=== PATIENT | female | born 1995 ===

== ENCOUNTER 2017-01-05 06:14 | Emergency (ER) | payer OTHER ==
[2017-01-05] MEDS ORDERED: diPHENhydraMINE IV* 50 MG/ML 1 ml VIAL (BENADRYL) IV ONE (06:22)
[2017-01-05] MEDS ORDERED: NS 0.9% 1000 ML* 2,000 ML IV ONE (06:22)
[2017-01-05] MEDS ORDERED: Metoclopramide IV* 5 MG/ML 2 ML VIAL IV ONE (06:22)
[2017-01-05] MEDS ORDERED: Ketorolac INJ* 30 MG/ML 1 ML VIAL IV PUSH ONE (06:47)
[2017-01-05] MEDS ORDERED: Ketorolac INJ* 30 MG/ML 1 ML VIAL ONE (06:48)
[2017-01-05 07:47] LABS: Hematocrit 37 % (35-47); Hemoglobin 11.9 g/dl (12.0-16.0); Mean Corpuscular HGB Conc 32 g/dl (31-36); Mean Corpuscular Hemoglobin 27 pg (27-31); Mean Corpuscular Volume 82 fL (80-97); Mean Platelet Volume 10 um3 (7.4-10.4); Red Blood Count 4.48 10^6/ul (4.0-5.4); Red Cell Distribution Width 15 % (10.5-15); White Blood Count 8.6 10^3/ul (3.5-10.8)
[2017-01-05 08:17] LABS: BUN/Creatinine Ratio 20.6 (8-20); EGFR Non-African American 118.2 (>60)
--- NOTE | 2017-01-05 08:51 | ED ---
Fco Phelan Anna, scribed for Rachel Abernathy MD on 01/05/17 at 0837 . Progress - Progress Note Progress Note: Patient signed out from Dr. Smart at shift change. Upon re-evaluation at 0836, patient reports she is feeling better and does not need medication for home. Patient will be discharged with follow up form Anthony. Course/Dx - Diagnoses Provider Diagnoses: Migraine The documentation as recorded by the Fco devi Anna accurately reflects the service I personally performed and the decisions made by Josemanuel goff Justine, MD.
[2017-01-05 09:02] VITALS: BP 106/71
--- NOTE | 2017-01-06 15:04 | ED ---
Ann Phelan Alok, scribed for Donte Smart MD on 01/05/17 at 0643 . Headache - HPI Summary HPI Summary: 21 y/o female presents to the ED with a FUNEZ since 1999. Pt states that her FUNEZ is diffuse throughout her head, waxing and waning in intensity. Her FUNEZ worsened this morning prompting her visit to the ED. Pt states FUNEZ is worsened when supine. Pt denies any photophobia, fever, diaphoresis, chills, or neck pain. Pt states her menstrual periods have been normal lately and has NKDA. - History Of Current Complaint Chief Complaint: EDHeadache Stated Complaint: HEADACHE/VOMITING Time Seen by Provider: 01/05/17 06:30 Hx Obtained From: Patient Onset/Duration: Gradual Onset, Started hours ago, Worse Since - Morning Initially Headache Was: Moderate Currently Pain Is: Moderate Timing: Constant Character: Migraine Location of Headache: Diffuse Aggravating Factor: Position Change - Supine Allevating Factors: Nothing - Allergies/Home Medications Allergies/Adverse Reactions: Allergies Allergy/AdvReac Type Severity Reaction Status Date / Time No Known Allergies Allergy Verified 02/06/15 07:07 PMH/Surg Hx/FS Hx/Imm Hx Infectious Disease History: No Infectious Disease History: Reports: Traveled Outside the [place] in Last 30 Days - [place] - Family History Known Family History: Negative: Cardiac Disease, Diabetes - Social History Occupation: Student Alcohol Use: None Substance Use Type: Reports: None Smoking Status (MU): Never Smoked Tobacco Review of Systems Negative: Fever, Chills Negative: Photophobia, Erythema Negative: Sore Throat Negative: Chest Pain Negative: Shortness Of Breath, Cough Negative: Abdominal Pain, Vomiting, Nausea Negative: dysuria, hematuria Musculoskeletal: Other - Negative: Neck Pain Negative: Myalgia, Edema Negative: Rash Neurological: Other - Negative: Dizziness Positive: Headache All Other Systems Reviewed And Are Negative: Yes Physical Exam - Summary Physical Exam Summary: Constitutional: Well-developed, Well-nourished, Alert. (-) Distressed Skin: Warm, Dry HENT: Eyes: Conjunctiva normal Neck: Musculoskeletal ROM normal neck. (-) JVD, (-) Stridor, (-) Tracheal deviation Cardio: Rhythm regular, rate normal, Heart sounds normal; Intact distal pulses ; The pedal pulses are 2+ and symmetric. Radial pulses are 2+ and symmetric. (- ) Murmur Pulmonary/Chest wall: Effort normal. (-) Respiratory distress, (-) Wheezes, (-) Rales Abd: Soft. (-) Tenderness, (-) Distension, (-) Guarding, (-) Rebound Musculoskeletal: (-) Edema Lymph: (-) Cervical adenopathy Neuro: Alert, Oriented x3, Strength normal, Cranial nerves II-XII are grossly intact. (-) Dysmetria, (-) Nystagmus, (-) Ataxia by finger to nose testing, (-) Sensory deficit. Psych: Mood and affect Normal Triage Information Reviewed: Yes Vital Signs On Initial Exam: Initial Vitals Temp Pulse Resp BP Pulse Ox 97.3 F 76 12 98/64 99 01/05/17 06:17 01/05/17 06:17 01/05/17 06:17 01/05/17 06:17 01/05/17 06:17 Vital Signs Reviewed: Yes Diagnostics - Vital Signs Vital Signs Temp Pulse Resp BP Pulse Ox 01/05/17 06:17 97.3 F 76 12 98/64 99 - Laboratory Lab Results: Lab Results 01/05/17 01/05/17 Range/Units 07:39 07:39 WBC 8.6 (3.5-10.8) 10^3/ul RBC 4.48 (4.0-5.4) 10^6/ul Hgb 11.9 L (12.0-16.0) g/dl Hct 37 (35-47) % MCV 82 (80-97) fL MCH 27 (27-31) pg MCHC 32 (31-36) g/dl RDW 15 (10.5-15) % Plt Count 210 (150-450) 10^3/ul MPV 10 (7.4-10.4) um3 Sodium 137 (133-145) mmol/L Potassium 4.0 (3.5-5.0) mmol/L Chloride 107 (101-111) mmol/L Carbon Dioxide 23 (22-32) mmol/L Anion Gap 7 (2-11) mmol/L BUN 13 (6-24) mg/dL Creatinine 0.63 (0.51-0.95) mg/dL Est GFR ( Amer) 152.0 (>60) Est GFR (Non-Af Amer) 118.2 (>60) BUN/Creatinine Ratio 20.6 H (8-20) Glucose 98 (70-100) mg/dL Calcium 8.0 L (8.6-10.3) mg/dL Result Diagrams: 01/05/17 07:39 01/05/17 07:39 Lab Statement: Any lab studies that have been ordered have been reviewed, and results considered in the medical decision making process. Headache Course/Dx - Diagnoses Provider Diagnoses: Migraine Discharge - Discharge Plan Condition: Stable Disposition: HOME Patient Education Materials: General Headache (ED) [facility] - Additional Instructions: Follow up with primary care physician within 48 hours. Return to the emergency department for changing or worsening symptoms. The documentation as recorded by the Ann devi Alok accurately reflects the service I personally performed and the decisions made by Bing goff Jerry, MD.
== END 2017-01-05 09:00 | disposition home or self-care (01) ==
LOC: ED 06:14
DX: G43.909 Migraine, unspecified, not intractable, without status migrainosus (principal); R51 Headache
CPT/HCPCS: 36415; 80048; 85027; 96374; 96375; 99282; J1200; J1885

== ENCOUNTER 2017-01-09 19:04 | Emergency (ER) | payer OTHER ==
[2017-01-09] MEDS ORDERED: Metoclopramide TAB* 10 MG PO ONE (20:05)
[2017-01-09] MEDS ORDERED: Ketorolac INJ* 60 MG/2 ML VIAL IM ONE (20:05)
[2017-01-09] MEDS ORDERED: diPHENhydraMINE PO* 50 MG PO ONE (20:05)
[2017-01-09 21:26] VITALS: BP 113/72
--- NOTE | 2017-01-09 21:31 | UC ---
Gurpreet Phelan Erika, scribed for Laureano Negrete MD on 01/09/17 at 1956 . Headache HPI - HPI Summary HPI Summary: Patient is a 21-year-old female presenting to [facility] with a CC of a migraine headache. Patient was seen in the ED on 01/05/2017 with a migraine, and improved with treatment in the ED. Migraine returned the night of 01/07. Pain is currently a 5/10, and is slightly improved from earlier today. Pain was not alleviated by 2 doses of Maxalt. Migraine is located on the right side of the head and does not radiate. Pain is aggravated by light. Patient denies any fevers, chills, blurred vision, and neck pain. She does report that she has experienced nausea and vomiting today, and she has been unable to tolerate PO intake. Patient has as Hx of migraines. FHx migraines. Patient does not smoke or drink. - History Of Current Complaint Chief Complaint: UCHeadache Stated Complaint: HEADACHE AND VOMITING Time Seen by Provider: 01/09/17 19:21 Hx Obtained From: Patient Hx Last Menstrual Period: 12/26/16 Onset/Duration: Gradual Onset, Lasting Days, Still Present Pain Intensity: 5 Pain Scale Used: 0-10 Numeric Timing: Constant Character: Migraine Location of Headache: Other: - right-sided Aggravating Factor: Bright Lights Allevating Factors: Nothing Associated Signs And Symptoms: Positive: Nausea, Vomiting. Negative: Fever, Neck Pain, Visual Changes - Allergies/Home Medications Allergies/Adverse Reactions: Allergies Allergy/AdvReac Type Severity Reaction Status Date / Time No Known Allergies Allergy Verified 01/09/17 19:18 Home Medications: Home Medications Rizatriptan (NF) [Maxalt(NF)] 1 PRN 01/09/17 [History] Zonisamide 1 PO DAILY 01/09/17 [History] PMH/Surg Hx/FS Hx/Imm Hx Endocrine History Of: Denies: Diabetes, Thyroid Disease Cardiovascular History Of: Denies: Cardiac Disorders, Hypertension Respiratory History Of: Denies: COPD, Asthma GI/ History Of: Denies: Ulcer Neurological History Of: Reports: Migraine - Surgical History Surgical History: None - Family History Known Family History: Positive: Other - Migraines Negative: Cardiac Disease, Diabetes - Social History Alcohol Use: None Substance Use Type: None Smoking Status (MU): Never Smoked Tobacco Review of Systems Constitutional: Negative Skin: Negative Eyes: Photophobia ENT: Negative Respiratory: Negative Cardiovascular: Negative Gastrointestinal: Vomiting, Other - nausea Genitourinary: Negative Motor: Negative Neurovascular: Negative Musculoskeletal: Negative Neurological: Headache Psychological: Negative All Other Systems Reviewed And Are Negative: Yes Physical Exam Triage Information Reviewed: Yes Vital Signs: Initial Vital Signs Temp 97.8 F 01/09/17 19:09 Pulse 75 01/09/17 19:09 Resp 16 01/09/17 19:09 BP 104/72 01/09/17 19:09 Pulse Ox 100 01/09/17 19:09 Vital Signs Reviewed: Yes - Additional Comments VITAL SIGNS: Reviewed. GENERAL: Patient is a well developed and nourished female who is lying comfortable in the stretcher. Patient is not in any acute respiratory distress. HEAD AND FACE: No signs of trauma. No ecchymosis, hematomas or skull depressions. No sinus tenderness. EYES: PERRLA, EOMI x 2, No injected conjunctiva, no nystagmus. No photophobia. EARS: Hearing grossly intact. Ear canals and tympanic membranes are within normal limits. MOUTH: Oropharynx within normal limits. NECK: Supple, trachea is midline, no adenopathy, no JVD, no carotid bruit, no c- spine tenderness, neck with full ROM. No meningeal signs, no Kernig's or brudzinskis signs. CHEST: Symmetric, no tenderness at palpation LUNGS: Clear to auscultation bilaterally. No wheezing or crackles. CVS: Regular rate and rhythm, S1 and S2 present, no murmurs or gallops appreciated. ABDOMEN: Soft, non-tender. No signs of distention. No rebound no guarding, and no masses palpated. Bowel sounds are normal. EXTREMITIES: FROM in all major joints, no edema, no cyanosis or clubbing. NEURO: Alert and oriented x 3. No acute neurological deficits. Speech is normal and follows commands. SKIN: Dry and warm Re-Evaluation - Re-Evaluation First Eval Re-Evaluation Time: 21:21 Change: Improved Comment: Patient feels signficantly improved and will be discharged at this time Headache Course/Dx - Course Course Of Treatment: Patient has Hx of Migraine headaches and she reports she feels like she is having another Migraine FUNEZ. She took Maxalt tablets and the symptoms did not improved. She denies any neck pain, photophobia, fever, chills. She had nausea and one episode of vomiting. In UC she was given Toradol , Benadryl and Reglan. After this medications her symptoms have improved. She reports pain 1/10. She is ambulatory and she has no meningeal signs and her headache resolved she will be discharged home with f/u PMD. I discussed all the findings and test results with the patient. Patient was instructed to return to the emergency room immediately if any of the symptoms return or worsens. Patient understands and agrees. Plan of care was discussed with the patient and patient understands and agrees with the plan of care. All questions were answered at patient satisfaction. There were no further complaints or concerns. Patient is alert and oriented x 3. Patient vital signs are stable. Patient is to follow up with primary care physician in the next 2 to 3 days. Patient understands and agrees. - Differential Dx/Diagnosis Differential Diagnosis/HQI/PQRI: Migraine, Sinus Headache Provider Diagnoses: 1. Headache Discharge - Discharge Plan Condition: Stable Disposition: HOME Patient Education Materials: General Headache (ED) Referrals: [facility] Puga [Primary Care Provider] - 2 Days Additional Instructions: Please follow up with your PCP The documentation as recorded by the Gurpreet devi Erika accurately reflects the service I personally performed and the decisions made by me, Laureano Negrete MD.
== END 2017-01-09 21:31 | disposition home or self-care (01) ==
LOC: UCEAST 19:04
DX: R51 Headache (principal)
CPT/HCPCS: 96372; 99202; A9270-GY; G0463; J1885

== ENCOUNTER 2017-03-13 23:07 | Emergency (ER) | payer OTHER ==
[2017-03-14] MEDS ORDERED: PROCHLORPERAZINE INJ 5 MG/ML 2 ML VIAL IV ONE (00:22)
[2017-03-14] MEDS ORDERED: NS 0.9% 1000 ML* 1,000 ML IV ONE (00:22)
[2017-03-14] MEDS ORDERED: Ketorolac INJ* 30 MG/ML 1 ML VIAL IV PUSH ONE (01:09)
[2017-03-14 01:19] LABS: Hematocrit 39 % (35-47); Hemoglobin 12.7 g/dl (12.0-16.0); Mean Corpuscular HGB Conc 33 g/dl (31-36); Mean Corpuscular Hemoglobin 26 pg (27-31); Mean Corpuscular Volume 80 fL (80-97); Mean Platelet Volume 10 um3 (7.4-10.4); Red Blood Count 4.85 10^6/ul (4.0-5.4); Red Cell Distribution Width 15 % (10.5-15); White Blood Count 12.1 10^3/ul (3.5-10.8)
[2017-03-14 01:31] LABS: ALT 22 U/L (7-52); AST 18 U/L (13-39); Albumin 4.5 g/dL (3.2-5.2); Alkaline Phosphatase 73 U/L (34-104); Anion Gap 9 mmol/L (2-11); BUN/Creatinine Ratio 25.4 (8-20); Blood Urea Nitrogen 17 mg/dL (6-24); CO2 Carbon Dioxide 25 mmol/L (22-32); Calcium 9.1 mg/dL (8.6-10.3); Chloride 102 mmol/L (101-111); EGFR African American 141.5 (>60); EGFR Non-African American 110.1 (>60); Globulin 3.1 g/dL (2-4); Glucose 98 mg/dL (70-100); Potassium 3.7 mmol/L (3.5-5.0); Sodium 136 mmol/L (133-145); Total Protein 7.6 g/dL (6.4-8.9)
[2017-03-14] MEDS ORDERED: Ondansetron ODT TAB* 4 MG SL ONE (01:52)
[2017-03-14 03:19] VITALS: BP 107/56
--- NOTE | 2017-03-25 12:11 | ED ---
Abdominal Pain/Female - HPI Summary HPI Summary: Pt with c/o migraine headache pain since 1800. Pt states that she was fasting up until that time, then ate salmon. Pt unsure if she has " food poisoning" , as she started to vomit after eating. Pt denies known fever. She states she thinks she is dehydrated since she has been fasting, then broke the fast with salmon, which she has never had before. Denies fever currently. Denies aches, sweats or chills. Otherwise healthy and takes no medications. Denies migraine FUNEZ currently. Wanted to come and get checked out to see if it was something more serious. - History of Current Complaint Chief Complaint: EDHeadache Stated Complaint: MIGRAINE,POSSIBLE FOOD POISONING, VOMITING Time Seen by Provider: 03/14/17 00:14 Hx Obtained From: Patient Hx Last Menstrual Period: 12/26/16 ?: No Onset/Duration: Sudden Onset Timing: Constant Severity Initially: Mild Severity Currently: Mild Pain Intensity: 0 Pain Scale Used: 0-10 Numeric Radiates: No Aggravating Factor(s): Food Alleviating Factor(s): Nothing Associated Signs and Symptoms: Positive: Negative - Risk Factors Ectopic Risk Factor: Negative Ovarian Torsion Risk Factor: Reproductive Age Allergies/Adverse Reactions: Allergies Allergy/AdvReac Type Severity Reaction Status Date / Time No Known Allergies Allergy Verified 03/13/17 23:13 PMH/Surg Hx/FS Hx/Imm Hx Previously Healthy: Yes Endocrine/Hematology History: Denies: Hx Diabetes, Hx Thyroid Disease Cardiovascular History: Denies: Hx Hypertension Respiratory History: Denies: Hx Asthma, Hx Chronic Obstructive Pulmonary Disease (COPD) GI History: Denies: Hx Ulcer Neurological History: Reports: Hx Migraine - Immunization History Hx Pertussis Vaccination: No Immunizations Up to Date: Unable to Obtain/Confirm Infectious Disease History: No Infectious Disease History: Denies: Hx Hepatitis, Hx Human Immunodeficiency Virus (HIV), Traveled Outside the [place] in Last 30 Days - Family History Known Family History: Positive: Other - Migraines Negative: Cardiac Disease, Diabetes - Social History Occupation: Unemployed Lives: With Family Alcohol Use: None Hx Substance Use: No Substance Use Type: Reports: None Hx Tobacco Use: No Smoking Status (MU): Never Smoked Tobacco Review of Systems Positive: Fever, Fatigue Eyes: Negative ENT: Negative Cardiovascular: Negative Respiratory: Negative Positive: Abdominal Pain, Vomiting, Nausea Positive: no symptoms reported, see HPI Musculoskeletal: Negative Skin: Negative Neurological: Negative All Other Systems Reviewed And Are Negative: Yes Physical Exam Triage Information Reviewed: Yes Vital Signs On Initial Exam: Initial Vitals Temp Pulse Resp BP Pulse Ox 97.4 F 76 16 100/57 100 03/13/17 23:10 03/13/17 23:10 03/13/17 23:10 03/13/17 23:10 03/13/17 23:10 Vital Signs Reviewed: Yes Appearance: Positive: Well-Appearing, No Pain Distress, Well-Nourished Skin: Positive: Warm, Skin Color Reflects Adequate Perfusion Head/Face: Positive: Normal Head/Face Inspection Eyes: Positive: EOMI, ALESSANDRO, Conjunctiva Clear Neck: Positive: Supple, Nontender, No Lymphadenopathy Respiratory/Lung Sounds: Positive: Breath Sounds Present Cardiovascular: Positive: RRR, Pulses are Symmetrical in both Upper and Lower Extremities Abdomen Description: Positive: Nontender, No Organomegaly, Bruit, Other: - no tenderness over mcburneys point, murphys sign or peritoneal signs Bowel Sounds: Positive: Present Musculoskeletal: Positive: Strength/ROM Intact Neurological: Positive: Sensory/Motor Intact, Alert, Oriented to Person Place, Time, Speech Normal Psychiatric: Positive: Normal AVPU Assessment: Alert - Jellico Coma Scale Coma Scale Total: 15 Diagnostics - Vital Signs Vital Signs Temp Pulse Resp BP Pulse Ox 03/14/17 03:19 98.2 F 03/14/17 03:00 65 107/56 99 03/14/17 02:30 57 105/70 100 03/14/17 02:00 73 99/59 99 03/14/17 01:44 65 100 03/14/17 01:43 98/58 03/14/17 01:40 98.2 F 63 16 98/58 100 03/13/17 23:10 97.4 F 76 16 100/57 100 - Laboratory Lab Results: Lab Results 03/14/17 03/14/17 Range/Units 01:03 01:03 WBC 12.1 H (3.5-10.8) 10^3/ul RBC 4.85 (4.0-5.4) 10^6/ul Hgb 12.7 (12.0-16.0) g/dl Hct 39 (35-47) % MCV 80 (80-97) fL MCH 26 L (27-31) pg MCHC 33 (31-36) g/dl RDW 15 (10.5-15) % Plt Count 231 (150-450) 10^3/ul MPV 10 (7.4-10.4) um3 Neut % (Auto) 87.1 H (38-83) % Lymph % (Auto) 9.3 L (25-47) % Summers % (Auto) 2.6 (1-9) % Eos % (Auto) 0.5 (0-6) % Baso % (Auto) 0.5 (0-2) % Absolute Neuts (auto) 10.6 H (1.5-7.7) 10^3/ul Absolute Lymphs (auto) 1.1 (1.0-4.8) 10^3/ul Absolute Monos (auto) 0.3 (0-0.8) 10^3/ul Absolute Eos (auto) 0.1 (0-0.6) 10^3/ul Absolute Basos (auto) 0.1 (0-0.2) 10^3/ul Absolute Nucleated RBC 0 10^3/ul Nucleated RBC % 0 Sodium 136 (133-145) mmol/L Potassium 3.7 (3.5-5.0) mmol/L Chloride 102 (101-111) mmol/L Carbon Dioxide 25 (22-32) mmol/L Anion Gap 9 (2-11) mmol/L BUN 17 (6-24) mg/dL Creatinine 0.67 (0.51-0.95) mg/dL Est GFR ( Amer) 141.5 (>60) Est GFR (Non-Af Amer) 110.1 (>60) BUN/Creatinine Ratio 25.4 H (8-20) Glucose 98 (70-100) mg/dL Calcium 9.1 (8.6-10.3) mg/dL Magnesium 2.0 (1.9-2.7) mg/dL Total Bilirubin 0.30 (0.2-1.0) mg/dL AST 18 (13-39) U/L ALT 22 (7-52) U/L Alkaline Phosphatase 73 (34-104) U/L Total Protein 7.6 (6.4-8.9) g/dL Albumin 4.5 (3.2-5.2) g/dL Globulin 3.1 (2-4) g/dL Albumin/Globulin Ratio 1.5 (1-3) Beta HCG, Quant < 0.60 mIU/mL Result Diagrams: 03/14/17 01:03 03/14/17 01:03 Lab Statement: Any lab studies that have been ordered have been reviewed, and results considered in the medical decision making process. Abdominal Pain Fem Course/Dx - Course Course Of Treatment: Patient presents with N/V s/p eating salmon after fasting. She notes to a fever, but is afebrile on arrival to ED with no medication use. Labs OK. WBC elevated at 12.1, but otherwise normal. Patient feeling better after zofran in ED. Encouraged gatorade for dehydration and continue with supplementation of fluids with zofran rx given. Patient OK with discharge. - Diagnoses Differential Diagnosis: Positive: Appendicitis, Ovarian Cyst, Pancreatitis, Other - food poisoning, dehydration Provider Diagnoses: Dehydration, Food poisoning Discharge - Discharge Plan Condition: Stable Disposition: HOME Prescriptions: Ondansetron ODT TAB* [Zofran 4 MG Odt TAB*] 4 mg PO Q6H PRN #12 tab.odt MDD 4 PRN Reason: Nausea Patient Education Materials: Dehydration (ED), Food Poisoning (ED) Referrals: [facility] [Primary Care Provider] - Additional Instructions: Follow up with PCP You have been diagnosed with reaction to food and dehydration. Drink plenty of water including Gatorade Take zofran as needed for nausea, this medication dissolves under the tongue Ibuprofen 600mg three times daily for pain/headache If you develop worsening symptoms, come back to ED.
== END 2017-03-14 03:19 | disposition home or self-care (01) ==
LOC: ED 23:07
DX: R11.2 Nausea with vomiting, unspecified (principal); T62.91XA Toxic effect of unspecified noxious substance eaten as food, accidental (unintentional), initial encounter; R51 Headache; R53.83 Other fatigue; R10.9 Unspecified abdominal pain; E86.0 Dehydration
CPT/HCPCS: 36415; 80053; 83735; 84702; 85025; 96374; 99283; A9270-GY; J0780; J1885